=== PATIENT | female | born 1965 | race Hispanic/Latino ===

== ENCOUNTER 2025-06-11 15:28 | Outpatient (CLI) | payer OTHER | END 2025-06-11 15:29 | disposition home or self-care (01) | LOC: BURRAD 15:28 | PROVIDERS: ATTEND Physician Assistant | DX: M17.0 Bilateral primary osteoarthritis of knee (principal); M11.261 Other chondrocalcinosis, right knee; M21.162 Varus deformity, not elsewhere classified, left knee; Z87.81 Personal history of (healed) traumatic fracture ==